=== PATIENT | male | born 1945 | race Caucasian/White ===

== ENCOUNTER 2017-01-23 20:10 | Emergency (ER) | payer OTHER ==
--- NOTE | 2017-01-23 22:20 | ED ORDER SUMMARY ---
..... Patient: CHINEDU DE SANTIAGO OrderSheet [facility] VisitID: [id number] [place] [address] 71y, M Registration Date/Time: 01/23/2017 ORDER SHEET Weight: 63.5 kg (stated) Allergies: No Known Drug Allergy GENERAL ORDERS: - (walk test.) (:34 01/23/2017 Ammy ESTES) (Ack 21:35 Candace) (22:09 EHassan R.N.) Dress Wounds (:34 01/23/2017 Ammy ESTES) (Ack 21:35 Candace) (22:09 EHassan R.N.) MEDICATION ORDERS: Tdap IM 0.5 mL (per protocol) (:34 01/23/2017 Ammy ESTES) (22:10 EHassan R.N.) IV FLUIDS: ORDER SHEET NOTES: [Electronically signed by Katerine Alves R.N. (22:36 01/23/2017)] [Electronically signed by Bharat Christiansen MD (00:17 01/31/2017)] [Electronically locked/signed by Katerine Alves R.N. (22:36 01/23/2017)]
--- NOTE | 2017-01-23 22:20 | ED NURSING NOTES ---
Clinical Report - Nurses [facility] [place] [address] 01/23/2017 20:12 Patient: CHINEDU DE SANTIAGO TRIAGE Triage time 2009 PM. Acuity: LEVEL 3. Chief Complaint: FALL. Alert. No acute distress. SEPSIS SCREEN: Sepsis Screen. Negative (no infection suspected/documented). NELDA COMA SCORE: Nelda Coma Scale: 15- eyes open spontaneously (4); best verbal response- oriented x 4 (5); best motor response- obeys commands (6). --20:26 Gina Zuniga R.N. 20:11 01/23/17. BP: 151/79 (regular adult cuff) taken on the right arm, via an automated monitor, while lying. HR: 80. RR: 15. O2 saturation: 96%. Temp: 98 F (oral). Pain level now: 0/10. --20:26 Gina Zuniga R.N. Weight: 63.5 kg stated. Height/Length: 68 inches Per Patient. BMI: 21.3. --20:10 Gina Zuniga R.N. Medications None. --20:45 Gina Zuniga R.N. Allergies No Known Drug Allergy. --20:45 Gina Zuniga R.N. Medication/allergy information source: the patient and patient's spouse. --20:26 Gina Zuniga R.N. History Arrived by EMS. Historian: patient. Accompanied by family. Primary physician (none). ( Pt states he was walking down [address] in [place] when he tripped and fell backwards, hit his head and back, lacerations to left hand (palm) and right fingers. Denies H/A, nauseous, dizziness, SOB, blurred vision. Brought by EMS for further work up). This occurred today. Occurred on a street. He has had back pain. No loss of consciousness. No headache, numbness or weakness. Treatment MANAGER MERCHANDISE: None. See EMS report. Trauma activation: Pre-hospital notification of patient arrival was received. PAST MEDICAL HX: Tetanus status: unknown. SOCIAL HX: Former smoker, end date 1986. Alcohol use. Patient is a recovering alcoholic. (1984 years). No drug use. No infectious disease exposure. ABUSE ASSESSMENT: No report of abuse. SELF HARM ASSESSMENT: A self harm assessment was performed. The patient answered "no" to the question "Do you have thoughts of harming or killing yourself?" and "Have you recently had thoughts about harming or killing others?". FALL RISK ASSESSMENT: Fall risk assessment completed. No fall risk identified. NUTRITIONAL RISK ASSESSMENT: The nutritional risk assessment revealed no deficiencies. FUNCTIONAL ASSESSMENT: Functional assessment: no impairments noted. LEARNING NEEDS ASSESSMENT: The learning needs assessment revealed no barriers. SKIN INTEGRITY ASSESSMENT: Skin integrity risk assessment completed. No skin integrity risk identified. --20:26 Gina Zuniga R.N. PROBLEMS: no known problems. ADDITIONAL SURGERIES: Cataract Surgery. --20:45 Gina Zuniga R.N. Interventions ID band on patient. --20:26 Gina Zuniga R.N. PHYSICAL ASSESSMENT To room via stretcher. GENERAL / NEURO / PSYCH: Alert. Oriented X 4. Pupillary exam: Right pupil 1mm, round and briskly reactive to light directly. Left pupil: 1mm, round and briskly reactive to light directly. HEENT: Head: tenderness and swelling present in the right occipital area (Mid back). No active bleeding from nose. Head: tenderness and swelling localized to the central area and left side of the occipital aspect of the head (back of head with lump). No bleeding, abrasion, puncture wound, foreign body or deformity. No ocular injury. No injury to the nose. RESPIRATORY: Respirations not labored. Decreased breath sounds posteriorly and in the bases bilaterally; decreased breath sounds in the right mid-lung posteriorly; decreased breath sounds in the left mid-lung posteriorly and in the bases bilaterally. Breath sounds within normal limits. CVS: Pulses within normal limits. Capillary refill less than 2 seconds. GI / : Abdomen soft and nontender. EXTREMITIES: Extremities exhibit normal ROM. Neuro-vascular status intact to the extremity. Left hand: tenderness, swelling, erythema, ecchymosis and superficial 1.5 cm laceration with controlled bleeding localized to the distal and palmar aspect of the hand (x 2 wounds - proximal 2 cm). No foreign body or deformity. ( Pt states lower back pain). SKIN: Skin intact. Skin is warm and dry. --20:44 Gina Zuniga R.N. NURSING PROGRESS NOTES The initial plan of care for this patient has been created This plan of care was discussed with the patient. Left hand elevated. Patient gowned. Warming measures: blanket applied. Reassurance given. Wound cleansed with sterile water. Two patient identifiers checked. Call light placed in reach. Side rails up x 2. Bed placed in lowest position. Brakes of bed on. --20:44 Gina Zuniga R.N. 22:10 01/23/2017 TDAP IM 0.5 mL given. (Lot#: [id number], expiration date: 07/09/2018, Grinder: [employer]). Given in the left deltoid. Allergies verified and confirmed 5 rights. Vaccine information statement provided to the patient. --22:10 Gina Zuniga R.N. Cardiac rhythm: normal sinus rhythm. Reassurance given. ( Pts wound dressed as ordered, walk test performed as per "this is his usual walk" a bit wobbly noted, denies being dizzy or n/v or pain). Call light placed in reach. --22:12 Gina Zuniga R.N. 22:00 01/23/17. BP: 158/84. HR: 69. RR: 14. O2 saturation: 97% on room air. Temp: 98 F (oral). Pain level now: 0/10. --22:12 Gina Zuniga R.N. <<STRICKEN ENTRY-- Cardiac rhythm: normal sinus rhythm; frequent PVCs. Reassurance given. ( MD Christiansen aware of K of 1.8 as a repeat from doctors office). Call light placed in reach. --22:21 Gina Zuniga R.N. --END STRIKE>> Charted On Wrong Patient --22:21 Gina Zuniga R.N. 22:20 01/23/17. BP: 168/82 (regular adult cuff) taken on the left arm, via an automated monitor, while lying. HR: 78 (regular). RR: 14. O2 saturation: 100% on room air. Pain level now: 0/10. --22:21 Gina Zuniga R.N. Care transferred and report received. --22:22 Rosa Parr R.N. ( pt making calls to get ride home at this time.). --22:22 Rosa Parr R.N. Reassurance given. Call light placed in reach. Care transferred and report given (Joshua Lee). --22:25 Gina Zuniga R.N. DISPOSITION / DISCHARGE Departure time: 22:35. Condition at departure: improved. No learning barriers present. Discharge instructions provided and reviewed with the patient. Patient verbalized understanding. Written instructions provided in [place]. No warning instructions, medication instructions, treatment instructions, referrals given to the patient or diet instructions. No activity restrictions, note given, follow up contact number given or stop smoking instructions. The patient was discharged by the physician. He was discharged home and accompanied by spouse. He left the Emergency Department ambulatory and via private vehicle. Spouse driving. FALL RISK ASSESSMENT: Fall risk assessment completed. No fall risk identified. --22:35 Elier Jama 22:34 01/23/17. BP: 158/84. HR: 67. RR: 18. O2 saturation: 100%. Temp: deferred. Pain level now: 010. --22:35 Elier Jama Locked/Released at 01/23/2017 22:36 by Elier Jama
--- NOTE | 2017-01-23 22:20 | ED CLINICAL REPORT ---
Clinical Report - Physicians/Mid Levels [facility] [address] [place] [address] 01/23/2017 20:12 Patient: CHINEDU DE SANTIAGO Time Seen: 21:10 Jan 23 2017. Arrived- By ambulance. Historian- patient and EMS personnel. HISTORY OF PRESENT ILLNESS Chief Complaint: INJURY TO HEAD, LOWER BACK and LEFT UPPER EXTREMITY (HAND). Location of injuries- head, lower back and left hand. The injury occurred just prior to arrival. Occurred on a street. ( Pt states he was walking [address] in [place] when he tripped and fell backwards, hit his head and back, lacerations to left hand (palm) and right fingers. Was supposed to be using his cane but did not have it. Hiss toe hit the curb when he tried to step up. Denies H/A, nauseous, dizziness, SOB, blurred vision. Brought by EMS for further work up). This occurred today. Occurred on a street. He has had back pain. No loss of consciousness. No headache, numbness or weakness.). Fell. The patient complains of moderate pain. The patient sustained a mild blow to the head. No neck pain or loss of consciousness. Not dazed. (Not on anticoagulants.). REVIEW OF SYSTEMS No numbness, hearing loss, chest pain, difficulty breathing or weakness. No headache, nausea, abdominal pain, fever or vomiting. He sustained skin laceration but has no pain on weight bearing. All systems otherwise negative, except as recorded above. PAST HISTORY See nurses notes. 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 Problems: no known problems. Medications: None. Allergies: No Known Drug Allergy. SOCIAL HISTORY Former smoker. No alcohol use or drug use. ADDITIONAL NOTES The nursing notes have been reviewed. PHYSICAL EXAM Vital Signs: 01/23/2017 20:11 BP: 151/79. HR: 80. RR: 15. O2 saturation: 96%. Temp: 98 F. Pain level now: 0/10. Appearance: Alert. No acute distress. Head: Vertex: mild tenderness, moderate swelling and small abrasion and ecchymosis of the posterior aspect of the vertex. No laceration. Eyes: Pupils equal, round and reactive to light. EOM intact. ENT: No dental injury. Pharynx normal. Neck: Painless ROM. Non-tender. CVS: Heart sounds normal. Pulses normal. Respiratory: Breath sounds normal. Chest nontender. Abdomen: No visible injury. Soft and nontender. Back: (mild tenderness over coxxyx but no deformity or crepitus.). Skin: Skin warm. Normal skin color. Extremities: Hypothenar eminence, left hand: superficial 1.0 cm laceration (Skin avulsion 1 cm.). Left palm: superficial 1.0 cm laceration (avulsion). (No bone tenderness with full ROM of the left hand . full strength and sensation.). Neuro: Oriented X 3. No motor deficit. No sensory deficit. Reflexes normal. PROGRESS AND PROCEDURES PROCEDURES (Wounds to hand are superficial with skin avulsions. The two skin avulsions were trimmed off with surgical scissors after lidocaine anesthesia and hand pre. Wounds were dressed .). Course of Care: Tdap Pt not on any anticoagulation and has no neuro symptoms. CT head not indicated. Pt ambulates at baseline. Pt has no evidence of fracture. Patient/family counseled. Disposition: Discharged. Condition: stable. CLINICAL IMPRESSION Multiple superficial skin avulsions of the left hand.No foreign body present. Single contusion with soft tissue hematoma and abrasion to the scalp. INSTRUCTIONS Apply ice for 15-20 minutes three times a day for one days. Protect wound and keep wound area clean. Change dressing twice daily. Soak in warm soapy water twice daily. Apply neosporin twice daily. Warnings: HEAD INJURY PRECAUTIONS: An observer must check on the patient every 4 hours for the next 24 hours to confirm that the patient responds as expected, is not confused, has no new weakness or numbness, and has no other problems. OTC Medications: Acetaminophen (available over the counter): take according to label instructions. Follow-up: Follow up with your doctor in one week. Call for the next available appointment. Understanding of the discharge instructions verbalized by patient. Discharge instructions reviewed with and understanding was verbalized by spouse. (Electronically signed by Bharat Chritsiansen MD 01/31/2017 0:17)
--- NOTE | 2017-01-23 22:20 | ED NURSING NOTES ---
Clinical Report - Nurses [facility] [place] [address] 01/23/2017 20:12 Patient: CHINEDU DE SANTIAGO TRIAGE Triage time 2009 PM. Acuity: LEVEL 3. Chief Complaint: FALL. Alert. No acute distress. SEPSIS SCREEN: Sepsis Screen. Negative (no infection suspected/documented). NELDA COMA SCORE: Nelda Coma Scale: 15- eyes open spontaneously (4); best verbal response- oriented x 4 (5); best motor response- obeys commands (6). --20:26 Gina Zuniga R.N. 20:11 01/23/17. BP: 151/79 (regular adult cuff) taken on the right arm, via an automated monitor, while lying. HR: 80. RR: 15. O2 saturation: 96%. Temp: 98 F (oral). Pain level now: 0/10. --20:26 Gina Zuniga R.N. Weight: 63.5 kg stated. Height/Length: 68 inches Per Patient. BMI: 21.3. --20:10 Gina Zuniga R.N. Medications None. --20:45 Gina Zuniga R.N. Allergies No Known Drug Allergy. --20:45 Gina Zuniga R.N. Medication/allergy information source: the patient and patient's spouse. --20:26 Gina Zuniga R.N. History Arrived by EMS. Historian: patient. Accompanied by family. Primary physician (none). ( Pt states he was walking [address] in [place] when he tripped and fell backwards, hit his head and back, lacerations to left hand (palm) and right fingers. Denies H/A, nauseous, dizziness, SOB, blurred vision. Brought by EMS for further work up). This occurred today. Occurred on a street. He has had back pain. No loss of consciousness. No headache, numbness or weakness. Treatment SPOT WELDER: None. See EMS report. Trauma activation: Pre-hospital notification of patient arrival was received. PAST MEDICAL HX: Tetanus status: unknown. SOCIAL HX: Former smoker, end date 1986. Alcohol use. Patient is a recovering alcoholic. (1984 years). No drug use. No infectious disease exposure. ABUSE ASSESSMENT: No report of abuse. SELF HARM ASSESSMENT: A self harm assessment was performed. The patient answered "no" to the question "Do you have thoughts of harming or killing yourself?" and "Have you recently had thoughts about harming or killing others?". FALL RISK ASSESSMENT: Fall risk assessment completed. No fall risk identified. NUTRITIONAL RISK ASSESSMENT: The nutritional risk assessment revealed no deficiencies. FUNCTIONAL ASSESSMENT: Functional assessment: no impairments noted. LEARNING NEEDS ASSESSMENT: The learning needs assessment revealed no barriers. SKIN INTEGRITY ASSESSMENT: Skin integrity risk assessment completed. No skin integrity risk identified. --20:26 Gina Zuniga R.N. PROBLEMS: no known problems. ADDITIONAL SURGERIES: Cataract Surgery. --20:45 Gina Zuniga R.N. Interventions ID band on patient. --20:26 Gina Zuniga R.N. PHYSICAL ASSESSMENT To room via stretcher. GENERAL / NEURO / PSYCH: Alert. Oriented X 4. Pupillary exam: Right pupil 1mm, round and briskly reactive to light directly. Left pupil: 1mm, round and briskly reactive to light directly. HEENT: Head: tenderness and swelling present in the right occipital area (Mid back). No active bleeding from nose. Head: tenderness and swelling localized to the central area and left side of the occipital aspect of the head (back of head with lump). No bleeding, abrasion, puncture wound, foreign body or deformity. No ocular injury. No injury to the nose. RESPIRATORY: Respirations not labored. Decreased breath sounds posteriorly and in the bases bilaterally; decreased breath sounds in the right mid-lung posteriorly; decreased breath sounds in the left mid-lung posteriorly and in the bases bilaterally. Breath sounds within normal limits. CVS: Pulses within normal limits. Capillary refill less than 2 seconds. GI / : Abdomen soft and nontender. EXTREMITIES: Extremities exhibit normal ROM. Neuro-vascular status intact to the extremity. Left hand: tenderness, swelling, erythema, ecchymosis and superficial 1.5 cm laceration with controlled bleeding localized to the distal and palmar aspect of the hand (x 2 wounds - proximal 2 cm). No foreign body or deformity. ( Pt states lower back pain). SKIN: Skin intact. Skin is warm and dry. --20:44 Gina Zuniga R.N. NURSING PROGRESS NOTES The initial plan of care for this patient has been created This plan of care was discussed with the patient. Left hand elevated. Patient gowned. Warming measures: blanket applied. Reassurance given. Wound cleansed with sterile water. Two patient identifiers checked. Call light placed in reach. Side rails up x 2. Bed placed in lowest position. Brakes of bed on. --20:44 Gina Zuniga R.N. 22:10 01/23/2017 TDAP IM 0.5 mL given. (Lot#: [id number], expiration date: 07/09/2018, Adjunct Trainer: [employer]). Given in the left deltoid. Allergies verified and confirmed 5 rights. Vaccine information statement provided to the patient. --22:10 Gina Zuniga R.N. Cardiac rhythm: normal sinus rhythm. Reassurance given. ( Pts wound dressed as ordered, walk test performed as per "this is his usual walk" a bit wobbly noted, denies being dizzy or n/v or pain). Call light placed in reach. --22:12 Gina Zuniga R.N. 22:00 01/23/17. BP: 158/84. HR: 69. RR: 14. O2 saturation: 97% on room air. Temp: 98 F (oral). Pain level now: 0/10. --22:12 Gina Zuniga R.N. <<STRICKEN ENTRY-- Cardiac rhythm: normal sinus rhythm; frequent PVCs. Reassurance given. ( MD Christiansen aware of K of 1.8 as a repeat from doctors office). Call light placed in reach. --22:21 Gina Zuniga R.N. --END STRIKE>> Charted On Wrong Patient --22:21 Gina Zuniga R.N. 22:20 01/23/17. BP: 168/82 (regular adult cuff) taken on the left arm, via an automated monitor, while lying. HR: 78 (regular). RR: 14. O2 saturation: 100% on room air. Pain level now: 0/10. --22:21 Gina Zuniga R.N. Care transferred and report received. --22:22 Rosa Parr R.N. ( pt making calls to get ride home at this time.). --22:22 Rosa Parr R.N. Reassurance given. Call light placed in reach. Care transferred and report given (Joshua Lee). --22:25 iGna Zuniga R.N. DISPOSITION / DISCHARGE Departure time: 22:35. Condition at departure: improved. No learning barriers present. Discharge instructions provided and reviewed with the patient. Patient verbalized understanding. Written instructions provided in Kittitian. No warning instructions, medication instructions, treatment instructions, referrals given to the patient or diet instructions. No activity restrictions, note given, follow up contact number given or stop smoking instructions. The patient was discharged by the physician. He was discharged home and accompanied by spouse. He left the Emergency Department ambulatory and via private vehicle. Spouse driving. FALL RISK ASSESSMENT: Fall risk assessment completed. No fall risk identified. --22:35 Elier Jama 22:34 01/23/17. BP: 158/84. HR: 67. RR: 18. O2 saturation: 100%. Temp: deferred. Pain level now: 010. --22:35 Elier Jama Locked/Released at 01/23/2017 22:36 by Elier Jama
--- NOTE | 2017-01-23 22:20 | ED ORDER SUMMARY ---
..... Patient: CHINEDU DE SANTIAGO OrderSheet [facility] VisitID: [id number] [place] [address] 71y, M Registration Date/Time: 01/23/2017 ORDER SHEET Weight: 63.5 kg (stated) Allergies: No Known Drug Allergy GENERAL ORDERS: - (walk test.) (:34 01/23/2017 Ammy ESTES) (Ack 21:35 Candace) (22:09 EHassan R.N.) Dress Wounds (:34 01/23/2017 Ammy ESTES) (Ack 21:35 Candace) (22:09 EHassan R.N.) MEDICATION ORDERS: Tdap IM 0.5 mL (per protocol) (:34 01/23/2017 Ammy ESTES) (22:10 EHassan R.N.) IV FLUIDS: ORDER SHEET NOTES: [Electronically signed by Katerine Alves R.N. (22:36 01/23/2017)] [Electronically signed by Bharat Christiansen MD (00:17 01/31/2017)] [Electronically locked/signed by Katerine Alves R.N. (22:36 01/23/2017)]
--- NOTE | 2017-01-31 00:17 | ED MAR SUMMARY ---
..... Medication Administration Record [facility] [address] [place] [address] Patient: CHINEDU DE SANTIAGO Visit ID: [id number] 71y, M Weight: 63.5 kg Height/Length: 68 in BMI: 21.3 ALLERGIES: No Known Drug Allergy Given 22:10 01/23/2017 Gina Zuniga R.N. Medication Administered: TDAP [IM], Dose: 0.5 mL IM. Medication Ordered: Tdap IM 0.5 mL (per protocol).
--- NOTE | 2017-01-31 00:17 | ED MAR SUMMARY ---
..... Medication Administration Record [facility] [address] [place] [address] Patient: CHINEDU DE SANTIAGO Visit ID: [id number] 71y, M Weight: 63.5 kg Height/Length: 68 in BMI: 21.3 ALLERGIES: No Known Drug Allergy Given 22:10 01/23/2017 Gina Zuniga R.N. Medication Administered: TDAP [IM], Dose: 0.5 mL IM. Medication Ordered: Tdap IM 0.5 mL (per protocol).
--- NOTE | 2017-01-31 00:17 | ED DISCHARGE INSTRUCTIONS ---
Patient: CHINEDU DE SANTIAGO General Instructions [facility] VisitID: [id number] [place] [address] 71y, M Registration Date/Time: 01/23/2017 Multiple superficial skin avulsions of the left hand.No foreign body present. Single contusion with soft tissue hematoma and abrasion to the scalp. INSTRUCTIONS Apply ice for 15-20 minutes three times a day for one days. Protect wound and keep wound area clean. Change dressing twice daily. Soak in warm soapy water twice daily. Apply neosporin twice daily. Warnings: HEAD INJURY PRECAUTIONS: An observer must check on the patient every 4 hours for the next 24 hours to confirm that the patient responds as expected, is not confused, has no new weakness or numbness, and has no other problems. OTC Medications: Acetaminophen (available over the counter): take according to label instructions. Follow-up: Follow up with your doctor in one week. Call for the next available appointment. Understanding of the discharge instructions verbalized by patient. Discharge instructions reviewed with and understanding was verbalized by spouse. ADDITIONAL INFORMATION Scalp Contusion [No Wake-Up] A scalp contusion is a bruise with swelling and sometimes bleeding under the skin. The swelling should start to go down within two days. Although there is no sign of a serious injury at this time, symptoms may appear later. These could be a sign of a more serious problem (bruising or bleeding in the brain). Therefore, watch for the warning signs below. Home Care: During the next 24 hours someone must stay with you to check for the signs below. It is not necessary to stay awake or be awakened during the night. If you have swelling of the face or scalp, apply an ice pack (ice cubes in a plastic bag, wrapped in a towel) for 20 minutes. Do this every 1-2 hours until the swelling starts to go down. You may use acetaminophen (Tylenol) or ibuprofen (Motrin, Advil) to control pain, unless another pain medicine was prescribed. [ NOTE : If you have chronic liver or kidney disease or ever had a stomach ulcer or GI bleeding, talk with your doctor before using these medicines.] For the next 24 hours: Do not take alcohol, sedatives or medicines that make you sleepy. Do not drive or operate machinery. Avoid strenuous activities. No lifting or straining. If you have had any symptoms of a concussion today (nausea, vomiting, dizziness, confusion, headache, memory loss or if you were knocked out), do not return to sports or any activity that could result in another head injury until all symptoms are gone and you have been cleared by your doctor. A second head injury before fully recovering from the first one can lead to serious brain injury. Follow Up with your doctor if symptoms are not improving after 24 hours, or as directed. [NOTE: Any X-rays or CT scans taken will be reviewed by a radiologist. You will be notified of any new findings that may affect your care.] Get Prompt Medical Attention if any of the following occur: Repeated vomiting Severe or worsening headache or dizziness Unusual drowsiness, or unable to awaken as usual Confusion or change in behavior or speech, memory loss, blurred vision Convulsion (seizure) Increasing scalp or face swelling Redness, warmth or pus from the swollen area Fluid drainage or bleeding from the nose or ears Fever of 100.4F(38C) or higher, or as directed by your healthcare provider Skin Tear (Skin Avulsion) A skin avulsion is a tearing of the top layer of skin. This occurs commonly in older persons with thin, fragile skin. It can happen after a fall or other injury. Home care The following guidelines will help you care for your wound at home: Keep the wound clean and dry. If a bandage was applied and it becomes wet or dirty, replace it. Otherwise, leave it in place for the first 24 hours, then change it once a day or as directed. Ifsutureswere used, clean the wound daily: After removing the bandage, wash the area with soap and water. Use a wet cotton swab to loosen and remove any blood or crust that forms. After cleaning, apply a thin layer of antibiotic ointment. This will keep the wound clean and make it easier to remove the stitches. Reapply a fresh bandage. You may remove the bandage to shower as usual after the first 24 hours, but do not soak the area in water (no tub baths or swimming) until the sutures are removed. Ifsurgical tape closureswere used, keep the area clean and dry. If it becomes wet, blot it dry with a towel. Ifskin adhesivewas used, do not scratch, rub or pick at the adhesive film. Do not place tape directly over the film.Do not apply liquid, ointment, or creams to the wound while the filmis in place. Do not clean the wound with peroxide and do not apply ointments. Avoid activities that cause heavy sweating until the film has fallen off. Protect the wound from prolonged exposure to sunlight or tanning lamps. You may shower as usual but do not soak the wound in water (no baths or swimming). You may use acetaminophen or ibuprofen to control pain, unless another pain medicine was prescribed.If you have chronic liver or kidney disease or ever had a stomach ulcer or GI bleeding, talk with your doctor before using these medicines. Follow-up care Most skin wounds heal within ten days. However, an infection may sometimes occur despite proper treatment. Therefore, check the wound for the warning signs listed below.Stitchesshould be removed within 714 days. If surgical tape closures were used, you may remove them yourself if they have not fallen off in 10 days. If skin glue was used, the film will fall off by itself in 510 days. When to seek medical care Get prompt medical attention if any of the following occur: Increasing pain in the wound Redness, swelling, or pus coming from the wound Fever of 100.4F (38C) or higher, or as directed by your health care provider Sutures or jada come apart or fall out before your next appointment Surgical tape closures fall off within seven days, or the wound edges re-open Bleeding not controlled by direct pressure Head Injury, No Wake-Up (Adult) You have had a head injury. It does not appear serious at this time. Symptoms of a more serious problem (concussion, bruising, or bleeding in the brain) may appear later. Therefore, watch for the WARNING SIGNS listed below. Home Care: Your healthcare provider will tell you whether its okay to drive. If so, you can drive yourself home. For the next day or so, be careful when driving or using heavy machinery until you are sure you have no delayed symptoms. During the next 24 hours someone must stay with you to check for the signs below. It is not necessary to stay awake or be awakened during the night. If you have swelling of the face or scalp, apply an ice pack (ice cubes in a plastic bag, wrapped in a towel) for 20 minutes. Do this every 1-2 hours until the swelling starts to go down. Do not use aspirin or ibuprofen (Motrin, Advil) after a head injury.You may use acetaminophen (Tylenol)to control pain, unless another pain medicine was prescribed. [NOTE: If you have chronic liver or kidney disease or ever had a stomach ulcer or GI bleeding, talk with your doctor before using these medicines.] For the next 24 hours: Do not take alcohol, sedatives or medicines that make you sleepy. Avoid strenuous activities. No lifting or straining. If you have had any symptoms of a concussion today (nausea, vomiting, dizziness, confusion, headache, memory loss or if you were knocked out), do not return to sports or any activity that could result in another head injury until all symptoms are gone and you have been cleared by your doctor. A second head injury before fully recovering from the first one can lead to serious brain injury. Follow Up with your doctor if symptoms are not improving after 24 hours, or as directed. [NOTE: A radiologist will review any X-rays or CT scans that were taken. We will notify you of any new findings that may affect your care.] Get Prompt Medical Attention if any of the followingWARNING SIGNS occur: Repeated vomiting Severe or worsening headache or dizziness Unusual drowsiness, or unable to awaken as usual Confusion or change in behavior or speech, memory loss, blurred vision Convulsion (seizure) Increasing scalp or face swelling Redness, warmth or pus from the swollen area Fluid drainage or bleeding from the nose or ears You have been given the following additional information: Scalp Contusion, No Wake Up Skin Avulsion HEAD INJURY, No Wake-Up (Adult) (Electronically signed by Bharat Christiansen MD 01/31/2017 0:17)
--- NOTE | 2017-01-31 00:17 | ED MED RECONCILIATION SUMMARY ---
Patient: CHINEDU DE SANTIAGO Medication Reconciliation Report [facility] VisitID: [id number] [address] [place] [address] 71y, M Registration Date/Time: 01/23/2017 Weight: 63.5 kg Height/Length: 68 in. BMI: 21.3 ALLERGIES: No Known Drug Allergy The patient's Home Medications are listed below: NONE. The source(s) of the original Home Medication information: patient patient's spouse The following Medications were given to the patient in the Emergency Department: TDAP [IM] IM 0.5 mL, administered: 01/23/2017 10:10:00 PM The following Medications were prescribed to the patient: Acetaminophen (available over the counter): take according to label instructions. -- Bharat Christiansen MD
--- NOTE | 2017-01-31 00:17 | ED MED RECONCILIATION SUMMARY ---
Patient: CHINEDU DE SANTIAGO Medication Reconciliation Report [facility] VisitID: [id number] [address] [place] [address] 71y, M Registration Date/Time: 01/23/2017 Weight: 63.5 kg Height/Length: 68 in. BMI: 21.3 ALLERGIES: No Known Drug Allergy The patient's Home Medications are listed below: NONE. The source(s) of the original Home Medication information: patient patient's spouse The following Medications were given to the patient in the Emergency Department: TDAP [IM] IM 0.5 mL, administered: 01/23/2017 10:10:00 PM The following Medications were prescribed to the patient: Acetaminophen (available over the counter): take according to label instructions. -- Bharat Christiansen MD
== END 2017-01-23 22:30 | disposition home or self-care (01) ==
LOC: ED SRH 20:10
DX: S61.402A Unspecified open wound of left hand, initial encounter (principal); S00.03XA Contusion of scalp, initial encounter; W18.09XA Striking against other object with subsequent fall, initial encounter; Y93.01 Activity, walking, marching and hiking; Y92.410 Unspecified street and highway as the place of occurrence of the external cause; Y99.9 Unspecified external cause status; Z23 Encounter for immunization; Z87.891 Personal history of nicotine dependence